=== PATIENT | female | born 1940 ===

== ENCOUNTER 2020-01-31 14:30 | Inpatient (IN) | payer MEDICARE ==
[2020-01-31] MEDS: traMADol HCl 50 MG TAB PO PRN (23:29)
[2020-02-01] MEDS: Acetaminophen 325 MG TAB PO PRN ×4 (02:03→17:39)
[2020-02-01 05:19] LABS: #Basophils 0.1 thou/uL (0.0-0.2); #Eosinphils 0.5 thou/uL (0.0-0.7); #Lymphocytes 2.2 thou/uL (1.20-3.40); #Monocytes 0.6 thou/uL (0.11-0.59); #Neutrophils 3.9 thou/uL (1.40-6.50); %Basophils 1.2 % (0.0-1.0); %Eosinophils 6.7 % (0.0-10.0); %Lymphocytes 29.6 % (21.0-51.0); %Monocytes 8.9 % (0.0-10.0); %Neutrophils 53.6 % (42.0-75.0); Hemoglobin 13.4 g/dL (12.0-16.0); Mean Corpuscular HGB CONC 31.9 g/dL (32.0-36.0); Mean Corpuscular Hemoglobin 29.8 pg (27.0-31.0); Mean Corpuscular Volume 93.6 fL (78.0-98.0); Mean Platelet Volume 6.1 fL (7.4-10.4); Platelet Count 342 thou/uL (130-400); RBC Distribution Width 12.1 % (11.5-14.5); White Blood Cell (WBC) Count 7.3 thou/uL (4.8-10.8)
[2020-02-01 05:36] LABS: ALT (SGPT) 26 U/L (8-55); AST (SGOT) 24 U/L (5-34); Albumin 3.2 g/dL (3.4-4.8); Alkaline Phosphatase 79 U/L (40-110); Anion Gap 12 mmol/L (10-20); BUN (Urea Nitrogen) 19 mg/dL (9.8-20.1); Bilirubin, Total 0.4 mg/dL (0.2-1.2); Calc. Creatinine Clearance 76 mL/min (70-130); Calcium 8.7 mg/dL (7.8-10.44); Carbon Dioxide 33 mmol/L (23-31); Chloride 95 mmol/L (98-107); Globulin 2.9 g/dL (2.4-3.5); Glucose 106 mg/dL (83-110); Potassium 4.3 mmol/L (3.5-5.1); Protein, Total 6.1 g/dL (6.0-8.3); Sodium 136 mmol/L (136-145)
[2020-02-01] MEDS: Levothyroxine 150 MCG TAB PO SCH (06:44)
[2020-02-01] MEDS: traMADol HCl 50 MG TAB PO PRN ×3 (06:44→20:51)
[2020-02-01] MEDS: Levothyroxine Sodium 25 MCG TAB PO SCH (06:44)
[2020-02-01] MEDS: Furosemide 40 MG TAB PO SCH (07:32)
[2020-02-01] MEDS: Aspirin 81 mg Enteric Coated Tablet PO SCH (08:34)
--- NOTE | 2020-02-01 20:16 | HP ---
HISTORY OF PRESENT ILLNESS: This is an 79-year-old female with a past medical history of spinal stenosis, central canal stenosis, hypothyroidism, and osteoarthritis, who originally presented to [facility] with complaint of back and leg pains. She had had multiple falls over the last couple of weeks and she was having severe right-sided pain. In the ED, initial evaluation with imaging studies revealed central canal stenosis and foraminal narrowing related to degenerative changes. No fractures were seen. She was diagnosed with UTI and she was admitted for IV antibiotics and fluids. Her leukocytosis resolved and physical therapy was started due to her weakness. She was evaluated and determined to need further inpatient rehab and was transferred here to [facility] for further PT and OT services. Upon arrival to [facility], the patient is in no acute distress. She is doing well, pleasant, and ready for rehab. She denies any fever, chills, cough, congestion, chest pain, palpitations, nausea, vomiting, or diarrhea. She does report right leg pain which has been chronic, but improving with tramadol. We have continued her tramadol here p.r.n. We continued her levothyroxine as well. PAST MEDICAL HISTORY: Hypothyroidism, central canal stenosis, and osteoarthritis. PAST SURGICAL HISTORY: Hysterectomy, tubal ligation. FAMILY HISTORY: Noncontributory. SOCIAL HISTORY: Denies any alcohol, tobacco, or illicit drug use. OBJECTIVE: VITAL SIGNS: Temperature 96.1 to 98.9, pulse 64 to 78, respirations 16 to 18, O2 sats 99% on room air, blood pressure range 100/63 to 137/76. GENERAL: Well-appearing 79-year-old female, lying in bed, in no acute distress. NECK: No JVD. No thyromegaly. CHEST: Clear to auscultation bilaterally. No wheezes or rhonchi. HEART: Regular rate and rhythm. No murmurs, gallops, or rubs. ABDOMEN: Soft, nontender to palpation. Bowel sounds positive in all 4 quadrants. EXTREMITIES: No edema. MSK: Generalized weakness. NEURO: Alert and oriented x4. Pleasant and cooperative. LABS: White count 7.3, hemoglobin 13.4, hematocrit 42.2, and platelets 342. Sodium 136, potassium 4.5, chloride 95, CO2 33, BUN 19, creatinine 0.69, GFR of 82, glucose 106, calcium 8.7, albumin low at 3.2. ASSESSMENT: 1. Weakness secondary to urinary tract infection. 2. Urinary tract infection, on Levaquin, asymptomatic. 3. Central canal stenosis. 4. Hypothyroidism. 5. Osteoarthritis. PLAN: 1. Continue levothyroxine. 2. Fall precautions. 3. PT/OT consult. 4. Dietary consult. 5. Ambulation for DVT prophylaxis. 6. GI prophylaxis not indicated. 7. Pain management with tramadol p.r.n. Discussed risks of this medication including falls. 8. Continue Lasix for swelling. Of note, a venous Doppler was done at [facility] and was negative for any DVTs. 9. Continue to follow lab work and monitor vitals. Job ID: [id number]
[2020-02-02] MEDS: Levothyroxine Sodium 25 MCG TAB PO SCH (05:27)
[2020-02-02] MEDS: Levothyroxine 150 MCG TAB PO SCH (05:27)
[2020-02-02] MEDS: traMADol HCl 50 MG TAB PO PRN ×3 (05:28→20:22)
[2020-02-02] MEDS: Acetaminophen 325 MG TAB PO PRN (08:14)
[2020-02-02] MEDS: Aspirin 81 mg Enteric Coated Tablet PO SCH (08:14)
[2020-02-02] MEDS: Furosemide 40 MG TAB PO SCH (08:15)
[2020-02-02] MEDS: Milk Of Magnesia 30 ML UDCUP PO PRN (20:26)
[2020-02-03] MEDS: traMADol HCl 50 MG TAB PO PRN ×3 (04:54→17:11)
[2020-02-03] MEDS: Levothyroxine 150 MCG TAB PO SCH (05:00)
[2020-02-03] MEDS: Levothyroxine Sodium 25 MCG TAB PO SCH (05:00)
[2020-02-03] MEDS: Furosemide 40 MG TAB PO SCH (07:43)
[2020-02-03] MEDS: Aspirin 81 mg Enteric Coated Tablet PO SCH (07:43)
[2020-02-03] MEDS: Cyclobenzaprine 10 MG TAB PO PRN ×2 (07:49→20:07)
--- NOTE | 2020-02-03 09:15 | PRG ---
DATE OF SERVICE: 02/02/2020 SUBJECTIVE: This is an 79-year-old female, here for continued PT and OT services. The patient is doing well with no acute concerns. No acute events overnight. Discussed with nursing staff. REVIEW OF SYSTEMS: Denies any cough, congestion, fever, chills, chest pain, palpitations, nausea, vomiting, or diarrhea. OBJECTIVE: VITAL SIGNS: Temperature 96.3, pulse is 65, respirations 18, O2 saturations 98% on room air, blood pressure 124/57. GENERAL: Well-appearing 79-year-old female in no acute distress, lying in bed. NECK: No JVD. No thyromegaly. CHEST: Clear to auscultation bilaterally. No wheezes or rhonchi. HEART: Regular rate and rhythm. No murmurs, gallops, or rubs. ABDOMEN: Soft, nontender to palpation. Bowel sounds positive in all four quadrants. ASSESSMENT: 1. Weakness secondary to urinary tract infection. 2. Urinary tract infection, on Levaquin, asymptomatic. 3. Central canal stenosis. 4. Hypothyroidism. 5. Osteoarthritis. PLAN: 1. Continue levothyroxine. 2. Fall precautions. 3. Continue PT/OT services. 4. Continue current diet. 5. Ambulation for DVT prophylaxis. 6. GI prophylaxis not indicated at this time. 7. Continue p.r.n. tramadol. 8. Continue Lasix. 9. Monitor lab work and vitals. Job ID: [id number]
[2020-02-03] MEDS: Acetaminophen 325 MG TAB PO PRN ×2 (13:35→18:08)
[2020-02-04] MEDS: Cyclobenzaprine 10 MG TAB PO PRN ×2 (04:54→21:13)
[2020-02-04] MEDS: traMADol HCl 50 MG TAB PO PRN ×2 (04:55→09:14)
[2020-02-04] MEDS: Levothyroxine 150 MCG TAB PO SCH (05:00)
[2020-02-04] MEDS: Levothyroxine Sodium 25 MCG TAB PO SCH (05:00)
[2020-02-04] MEDS: Furosemide 40 MG TAB PO SCH (07:44)
[2020-02-04] MEDS: Aspirin 81 mg Enteric Coated Tablet PO SCH (09:14)
--- NOTE | 2020-02-04 09:55 | PRG ---
DATE OF SERVICE: 02/04/2020 SUBJECTIVE: A pleasant 79-year-old female, here for continued PT and OT services. Today, the patient is nervous about her hospital course. She feels like she should be back to full strength at this time. She is worried about taking care of her daughter at home. I explained to her that she will need to be patient with her recovery. It may take more than just a couple of days to recover from this. We discussed that Physical Therapy will have a meeting on Wednesday to further assess her and estimate her hospital course. REVIEW OF SYSTEMS: Denies any fever, chills, chest pain, palpitations, cough, wheezing, nausea, vomiting, and diarrhea. OBJECTIVE: VITAL SIGNS: Temperature 96.8, pulse 63 to 68, respiratory rate 20, O2 sats 96 on room air, blood pressure 116/65 to 121/58. ASSESSMENT: 1. Weakness secondary to urinary tract infection. 2. Urinary tract infection, on Levaquin, asymptomatic. 3. Central canal stenosis. 4. Hypothyroidism. 5. Osteoarthritis. PLAN: 1. Continue levothyroxine. 2. Fall precautions. 3. Continue PT, OT services. 4. Continue current diet. 5. Ambulation for DVT prophylaxis. 6. GI prophylaxis, not indicated at this time. 7. Continue p.r.n. tramadol. 8. Continue Lasix. 9. Continue Levaquin. DISCHARGE PLANNING: We will follow up with PT and OT Services tomorrow and Wednesday. After a meeting, we will need to determine if the patient will need home health as the patient does have a dependent daughter at home. Job ID: [id number]
[2020-02-04] MEDS: Acetaminophen 325 MG TAB PO PRN (15:00)
[2020-02-05] MEDS: Levothyroxine 150 MCG TAB PO SCH (05:44)
[2020-02-05] MEDS: Levothyroxine Sodium 25 MCG TAB PO SCH (05:44)
[2020-02-05] MEDS: traMADol HCl 50 MG TAB PO PRN ×2 (05:44→10:44)
[2020-02-05 06:20] VITALS: BMI 28.6
[2020-02-05] MEDS: Aspirin 81 mg Enteric Coated Tablet PO SCH (08:10)
[2020-02-05] MEDS: Cyclobenzaprine 10 MG TAB PO PRN (08:10)
[2020-02-05] MEDS: Furosemide 40 MG TAB PO SCH (08:10)
--- NOTE | 2020-02-05 12:05 | PRG ---
DATE OF SERVICE: 02/05/2020 SUBJECTIVE: Ms. Vaz is up in bed and states that her fill up Flexeril is not helping. We will increase it to 10 mg. Discussed with nursing. No other concerns. OBJECTIVE: VITAL SIGNS: She is afebrile. Heart rate 69, respirations 18, oxygen saturation 96% on room air, blood pressure 119/78. CARDIOVASCULAR: S1 and S2 plus. RESPIRATORY: Normal vesicular breath sounds. ABDOMEN: Soft, nontender. Bowel sounds heard in all quadrants. EXTREMITIES: Without cyanosis or clubbing. CENTRAL NERVOUS SYSTEM: Generalized weakness, otherwise nonfocal. IMPRESSION: 1. Hypothyroidism. 2. Muscle spasticity. 3. Resolving urinary tract infection. 4. Osteoarthritis. 5. Deconditioning. PLAN: 1. Continue current medications, but increase Flexeril to 10 mg as needed. 2. Continue Levaquin. There is a slight interaction between Levaquin and Flexeril. We will continue to monitor. She should be finishing her Levaquin pretty soon. 3. Nutritional support. 4. Physical therapy. 5. DVT prophylaxis. The patient is at low risk per Dr. Jones. 6. Routine laboratory values. 7. Continue therapy. 8. Dr. Jones back tonight. Job ID: [id number]
[2020-02-05] MEDS: Milk Of Magnesia 30 ML UDCUP PO PRN (12:25)
[2020-02-05] MEDS: Acetaminophen 325 MG TAB PO PRN (17:12)
[2020-02-06] MEDS: Levothyroxine Sodium 25 MCG TAB PO SCH (04:56)
[2020-02-06] MEDS: Levothyroxine 150 MCG TAB PO SCH (04:56)
[2020-02-06] MEDS: Acetaminophen 325 MG TAB PO PRN ×2 (07:09→20:48)
[2020-02-06] MEDS: Furosemide 40 MG TAB PO SCH (07:10)
[2020-02-06] MEDS: traMADol HCl 50 MG TAB PO PRN (07:10)
[2020-02-06] MEDS: Aspirin 81 mg Enteric Coated Tablet PO SCH (09:06)
[2020-02-06] MEDS: Cyclobenzaprine 10 MG TAB PO PRN (20:49)
[2020-02-07] MEDS: Acetaminophen 325 MG TAB PO PRN (03:33)
[2020-02-07] MEDS: Levothyroxine Sodium 25 MCG TAB PO SCH (05:43)
[2020-02-07] MEDS: Levothyroxine 150 MCG TAB PO SCH (05:43)
[2020-02-07] MEDS: traMADol HCl 50 MG TAB PO PRN ×2 (07:34→21:02)
[2020-02-07] MEDS: Aspirin 81 mg Enteric Coated Tablet PO SCH (07:35)
[2020-02-07] MEDS: Furosemide 40 MG TAB PO SCH (07:35)
[2020-02-07] MEDS: Milk Of Magnesia 30 ML UDCUP PO PRN (21:08)
[2020-02-08] MEDS: Levothyroxine 150 MCG TAB PO SCH (05:46)
[2020-02-08] MEDS: Levothyroxine Sodium 25 MCG TAB PO SCH (05:46)
[2020-02-08] MEDS: traMADol HCl 50 MG TAB PO PRN (08:08)
[2020-02-08] MEDS: Furosemide 40 MG TAB PO SCH (08:10)
[2020-02-08] MEDS: Aspirin 81 mg Enteric Coated Tablet PO SCH (08:10)
[2020-02-08] MEDS: Cyclobenzaprine 10 MG TAB PO PRN (11:28)
[2020-02-08 12:49] VITALS: BP 120/60; TEMP 98
--- NOTE | 2020-02-08 16:53 | PRG ---
DATE OF SERVICE: 02/06/2020 SUBJECTIVE: Ms. Vaz is doing well with no complaints. She is lying in bed, in no acute distress. Doing well. Her pain is well controlled with current regimen. She is working well with PT and OT Services. Discussed with nursing. OBJECTIVE: VITAL SIGNS: Temperature 98.7, pulse 73, respirations 18, O2 sats 95% on room air, and blood pressure 113/60. GENERAL: Well-appearing 79-year-old female, lying in bed, no acute distress. NECK: No JVD. No thyromegaly. HEART: Regular rate and rhythm. No murmurs, gallops, or rubs. RESPIRATION: Clear to auscultation bilaterally. No wheezes or rhonchi. ABDOMEN: Soft, nontender to palpation. Bowel sounds positive in all four quadrants. EXTREMITIES: No cyanosis or clubbing. IMPRESSION: 1. Status post urinary tract infection. 2. Hypothyroidism. 3. Muscle spasticity. 4. Central canal stenosis. 5. Osteoarthritis. 6. Deconditioning secondary to above. PLAN: 1. Continue current medications at current dosages. 2. Complete Levaquin course. 3. PT/OT Services. 4. DVT and stress ulcer prophylaxes. 5. Routine lab work. 6. Continue therapy. Job ID: [id number]
== END 2020-02-08 12:50 | disposition home health service (06) | DRG 690 ==
LOC: NAV ACUTE 14:30
PROVIDERS: ADMIT Family Medicine; ATTEND Family Medicine
DX: N39.0 Urinary tract infection, site not specified (principal); E03.9 Hypothyroidism, unspecified; M19.90 Unspecified osteoarthritis, unspecified site; R53.81 Other malaise; M62.838 Other muscle spasm; M48.00 Spinal stenosis, site unspecified
CPT/HCPCS: 36415; 80053; 85025